=== PATIENT | female | born 1970 | race African-American/Black ===

== ENCOUNTER 2016-06-22 15:04 | Inpatient (IN) | payer OTHER ==
[2016-06-22 17:41] VITALS: BMI 24.7
--- NOTE | 2016-06-22 20:21 | HP ---
CIWA Score - CIWA Score Nausea/Vomitin Muscle Tremors: 4-Moderate,w/Arms Extend Anxiety: 3 Agitation: 3 Paroxysmal Sweats: 2 Orientation: 0-Oriented Tacttile Disturbances: 0-None Auditory Disturbances: 0-None Visual Disturbances: 0-None Headache: 0-None Present CIWA-Ar Total Score: 14 Admission ROS S - HPI Chief Complaint: WITHDRAWAL SYMPTOMS Allergies/Adverse Reactions: Allergies Allergy/AdvReac Type Severity Reaction Status Date / Time No Known Allergies Allergy Verified 06/22/16 20:18 History of Present Illness: 46 Y.O. WOMAN WITH AN EXTENSIVE HISTORY OF ALCOHOL DEPENDENCE IS SEEKING DETOX. THE REPORTS SHE COMPLETED DETOX 11 YEARS PRIOR AND REPORTS A HISTORY OF 2 YEARS OF SOBRIETY. Exam Limitations: No Limitations - Ebola screening Have you traveled outside of the country in the last 21 days: No Have you had contact with anyone from an Ebola affected area: No Have you been sick,other than usual withdrawal symptoms: No - Review of Systems Constitutional: Chills, Loss of Appetite, Changes in sleep, Unintentional Wgt. Loss EENT: reports: Blurred Vision, Tearing, Difficulty Swallowing Respiratory: reports: No Symptoms reported Cardiac: reports: No Symptoms Reported GI: reports: No Symptoms Reported : reports: No Symptoms Reported Musculoskeletal: reports: Back Pain Integumentary: reports: No Symptoms Reported Neuro: reports: Tremors Hematology: reports: No Symptoms Reported Psychiatric: reports: Orientated x3 Other Systems: Reviewed and Negative Patient History - Patient Medical History Hx Anemia: No Hx Asthma: No Hx Chronic Obstructive Pulmonary Disease (COPD): No Hx Cancer: No Hx Cardiac Disorders: No Hx Congestive Heart Failure: No Hx Hypertension: No Hx Hypercholesterolemia: No Hx Pacemaker: No HX Cerebrovascular Accident: No Hx Seizures: No Hx Dementia: No Hx Diabetes: No Hx Gastrointestinal Disorders: No Hx Liver Disease: No Hx Genitourinary Disorders: No Hx Sexually Transmitted Disorders: No Hx Renal Disease (ESRD): No Hx Thyroid Disease: No Hx Human Immunodeficiency Virus (HIV): No Hx Hepatitis C: No Hx Depression: No Hx Suicide Attempt: No Hx Bipolar Disorder: No Hx Schizophrenia: No - Patient Surgical History Past Surgical History: Yes Hx Neurologic Surgery: No Hx Cataract Extraction: No Hx Cardiac Surgery: No Hx Lung Surgery: No Hx Breast Surgery: No Hx Breast Biopsy: No Hx Abdominal Surgery: No Hx Appendectomy: No Hx Cholecystectomy: No Hx Genitourinary Surgery: No Hx Section: No Hx Orthopedic Surgery: Yes (R ROTATOR CUFF REPAIR ) Hx Hysterectomy: No Anesthesia Reaction: No - PPD History Previous Implant?: Yes Documented Results: Negative w/o proof Implanted On Prior [facility] Admission?: No PPD to be Administered?: Yes - Reproductive History Patient is a Female of Child Bearing Age (11 -55 yrs old): Yes Last Menstrual Period: 05/21/16 Patient : No - Smoking Cessation Smoking history: Current every day smoker Have you smoked in the past 12 months: Yes Aproximately how many cigarettes per day: 10 Hx Chewing Tobacco Use: No Initiated information on smoking cessation: Yes 'Breaking Loose' booklet given: 06/22/16 - Substance & Tx. History Hx Alcohol Use: Yes Hx Substance Use: No Substance Use Type: Alcohol Hx Substance Use Treatment: Yes (DETOX ) - Substances Abused Alcohol Route: Oral Frequency: Daily Amount used: 3-4 16OZ OF BEER Age of first use: 22 Date of Last Use: 06/22/16 Family Disease History - Family Disease History Family Disease History: Diabetes: Grandparent, Heart Disease: Father ( ) Admission Physical Exam S - Vital Signs Vital Signs: Vital Signs - 24 hr 06/22/16 17:39 Temperature 96.8 F L Pulse Rate 93 H Respiratory 20 Rate Blood Pressure 134/87 - Physical General Appearance: Yes: Intoxicated, Tremorous, Sweating, Anxious HEENTM: Yes: EOMI, Hearing grossly Normal, Normal ENT Inspection, Normocephalic Respiratory: Yes: Chest Non-Tender, Lungs Clear, Normal Breath Sounds, No Respiratory Distress, No Accessory Muscle Use Neck: Yes: No masses,lesions,Nodules, Trachea in good position Breast: Yes: Breast Exam Deferred Cardiology: Yes: Regular Rhythm, Regular Rate, S1, S2 Abdominal: Yes: Normal Bowel Sounds, Non Tender, Flat, Soft Genitourinary: Yes: Within Normal Limits Back: Yes: Normal Inspection Musculoskeletal: Yes: Gait Steady, Pelvis Stable, Back pain Extremities: Yes: Normal Capillary Refill, Normal Inspection, Normal Range of Motion 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 NML intact, Fully Oriented, Alert, Motor Strength 5/5, Normal Mood/Affect, Normal Response Integumentary: Yes: Normal Color, Dry, Warm Lymphatic: Yes: Within Normal Limits - Diagnostic (1) Alcohol dependence with uncomplicated withdrawal Current Visit: Yes Status: Chronic Cleared for Admission [facility] - Detox or Rehab [facility] Level of Care: Medically Managed Detox Regimen/Protocol: Librium [facility] Breath Alcohol Content Breath Alcohol Content: 0.193 Urine Pregancy Test - Result Urine Test Results: Negative- NO Line Present Urine Drug Screen - Results Drug Screen Negative: Yes
[2016-06-22] MEDS ORDERED: guaiFENesin/D-METHORPHAN HB 10 ML UNIT-DOSE CUPS PO PRN (20:33)
[2016-06-22] MEDS ORDERED: MAGNESIUM HYDROX 2400MG/30ML ORAL SUSPENSION 30 ML CUP PO PRN (20:33)
[2016-06-22] MEDS ORDERED: MAG HYDROX/AL HYDROX/SIMETH 30 ML UNIT-DOSE CUP PO PRN (20:33)
[2016-06-22] MEDS ORDERED: chlordiazePOXIDE HCL 25 MG CAPSULE PO PRN (20:33)
[2016-06-22] MEDS ORDERED: chlordiazePOXIDE HCL 25 MG CAPSULE PO ONE (20:33)
[2016-06-22] MEDS ORDERED: MENTHOL/PHENOL 1 EACH UD MM PRN (20:33)
[2016-06-22] MEDS ORDERED: ACETAMINOPHEN 325 MG TABLET (FP) PO PRN (20:33)
[2016-06-22] MEDS ORDERED: LOPERAMIDE HCL 2 MG CAPSULE PO PRN (20:33)
[2016-06-22] MEDS ORDERED: NICOTINE POLACRILEX 2 MG GUM BC PRN (20:33)
[2016-06-22] MEDS ORDERED: MAGNESIUM CITRATE 300 ML BOTTLE PO PRN (20:33)
[2016-06-22] MEDS ORDERED: P-EPHED 60MG/TRIPROLIDI 2.5MG TABLET PO PRN (20:33)
[2016-06-22] MEDS: diphenhydrAMINE HCL 50 MG CAPSULE PO PRN (21:40)
[2016-06-22] MEDS: THIAMINE HCL 100 MG TABLET (FP) PO SCH (21:43)
[2016-06-22] MEDS: chlordiazePOXIDE HCL 25 MG CAPSULE PO SCH (22:45)
[2016-06-22 22:49] LABS: URINE APPEARANCE CLEAR; URINE BILIRUBIN NEGATIVE (NEGATIVE); URINE BLOOD NEGATIVE (NEGATIVE); URINE COLOR STRAW; URINE GLUCOSE (UA) NEGATIVE (NEGATIVE); URINE KETONE NEGATIVE (NEGATIVE); URINE LEUK ESTERASE NEGATIVE (NEGATIVE); URINE NITRITE NEGATIVE (NEGATIVE); URINE PROTEIN NEGATIVE (NEGATIVE); URINE UROBILINOGEN NEGATIVE E.U./dl (0.2-1.0)
[2016-06-23] MEDS: chlordiazePOXIDE HCL 25 MG CAPSULE PO SCH ×4 (05:27→22:07)
[2016-06-23] MEDS: NICOTINE 14 MG/24 HOURS TOPICAL PATCH TD SCH (10:14)
[2016-06-23] MEDS: PRENATAL VITAMINS W/ FOLIC ACID TABLET (FP) PO SCH (10:14)
[2016-06-23 10:51] LABS: MCH 29.3 pg (25.7-33.7); MCHC 32.7 g/dl (32.0-36.0); MEAN CELL VOLUME 89.5 fl (80-96); MEAN PLT VOLUME 8.1 fl (7.5-11.1); PLATELET COUNT 162 K/MM3 (134-434); RDW 13.6 % (11.6-15.6); WHITE BLOOD COUNT 4.4 K/mm3 (4.0-10.0)
[2016-06-23 10:52] LABS: ALBUMIN 3.4 g/dl (3.4-5.0); ANION GAP 10 (8-16); CALCIUM 9.5 mg/dL (8.5-10.1); CO2 26 mmol/L (21-32); CREATININE 0.7 mg/dL (0.55-1.02); GLUCOSE,RANDOM 77 mg/dL (74-106); SGOT/AST 94 U/L (15-37); SGPT/ALT 57 U/L (12-78)
[2016-06-23 10:54] LABS: ALK PHOS 89 U/L (45-117); BILIRUBIN,TOTAL 0.6 mg/dL (0.2-1.0); TOT PROT 7.2 g/dl (6.4-8.2)
--- NOTE | 2016-06-23 11:24 | PN ---
[facility] CIWA - CIWA Score Nausea/Vomitin Muscle Tremors: 3 Anxiety: 3 Agitation: 2 Paroxysmal Sweats: 1-Minimal Palms Moist Orientation: 0-Oriented Tacttile Disturbances: 1-Very Mild Itch/Numbness Auditory Disturbances: 1-Very Mild Visual Disturbances: 1-Very Mild Sensitivity Headache: 2-Mild CIWA-Ar Total Score: 17 BHS Progress Note (SOAP) Subjective: ALERT,IRRITABLE,ANXIOUS,INTERRUPTED SLEEP,TREMOR Objective: 06/23/16 11:21 Vital Signs Temperature 97.9 F 06/23/16 09:59 Pulse Rate 96 H 06/23/16 09:59 Respiratory Rate 16 06/23/16 09:59 Blood Pressure 119/85 06/23/16 09:59 O2 Sat by Pulse Oximetry (%) EKG NSR 78/MIN NO CHEST PAIN,NO SOB,NO DIZZINESS Laboratory Last Values WBC 4.4 K/mm3 (4.0-10.0) 06/23/16 08:00 RBC 4.56 M/mm3 (3.60-5.2) 06/23/16 08:00 Hgb 13.3 GM/dL (10.7-15.3) 06/23/16 08:00 Hct 40.8 % (32.4-45.2) 06/23/16 08:00 MCV 89.5 fl (80-96) 06/23/16 08:00 MCHC 32.7 g/dl (32.0-36.0) 06/23/16 08:00 RDW 13.6 % (11.6-15.6) 06/23/16 08:00 Plt Count 162 K/MM3 (134-434) 06/23/16 08:00 MPV 8.1 fl (7.5-11.1) 06/23/16 08:00 Sodium 142 mmol/L (136-145) 06/23/16 08:00 Potassium 4.3 mmol/L (3.5-5.1) 06/23/16 08:00 Chloride 106 mmol/L (98-107) 06/23/16 08:00 Carbon Dioxide 26 mmol/L (21-32) 06/23/16 08:00 Anion Gap 10 (8-16) 06/23/16 08:00 BUN 7 mg/dL (7-18) 06/23/16 08:00 Creatinine 0.7 mg/dL (0.55-1.02) 06/23/16 08:00 Creat Clearance w eGFR > 60 (>60) 06/23/16 08:00 Random Glucose 77 mg/dL (74-106) 06/23/16 08:00 Calcium 9.5 mg/dL (8.5-10.1) 06/23/16 08:00 Total Bilirubin 0.6 mg/dL (0.2-1.0) 06/23/16 08:00 AST 94 U/L (15-37) H 06/23/16 08:00 ALT 57 U/L (12-78) 06/23/16 08:00 Alkaline Phosphatase 89 U/L (45-117) 06/23/16 08:00 Total Protein 7.2 g/dl (6.4-8.2) 06/23/16 08:00 Albumin 3.4 g/dl (3.4-5.0) 06/23/16 08:00 Urine Color Straw 06/22/16 21:56 Urine Appearance Clear 06/22/16 21:56 Urine pH 5.0 (5.0-8.0) 06/22/16 21:56 Ur Specific [place] 1.002 (1.001-1.035) 06/22/16 21:56 Urine Protein Negative (NEGATIVE) 06/22/16 21:56 Urine Glucose (UA) Negative (NEGATIVE) 06/22/16 21:56 Urine Ketones Negative (NEGATIVE) 06/22/16 21:56 Urine Blood Negative (NEGATIVE) 06/22/16 21:56 Urine Nitrite Negative (NEGATIVE) 06/22/16 21:56 Urine Bilirubin Negative (NEGATIVE) 06/22/16 21:56 Urine Urobilinogen Negative E.U./dl (0.2-1.0) 06/22/16 21:56 Ur Leukocyte Esterase Negative (NEGATIVE) 06/22/16 21:56 LABS PENDING Assessment: 06/23/16 11:23 WITHDRAWAL SYMPTOM Plan: CONTINUE DETOX
[2016-06-23] MEDS: hydrOXYzine PAMOATE 50 MG CAPSULE (FP) PO PRN (12:51)
--- NOTE | 2016-06-23 18:35 | EKG ---
Test Reason : Blood Pressure : / mmHG Vent. Rate : 078 BPM Atrial Rate : 078 BPM P-R Int : 172 ms QRS Dur : 068 ms QT Int : 358 ms P-R-T Axes : 079 052 015 degrees QTc Int : 408 ms POOR DATA QUALITY, INTERPRETATION MAY BE ADVERSELY AFFECTED NORMAL SINUS RHYTHM SEPTAL INFARCT , AGE UNDETERMINED NONSPECIFIC T WAVE ABNORMALITY ABNORMAL ECG NO PREVIOUS ECGS AVAILABLE Confirmed by CHRIS FERRERA, JOSE M ([id number]) on 06/23/2016 6:34:55 PM Referred By: Rj Berkowitz Confirmed By:JOSE M PEREZ MD
[2016-06-23] MEDS: THIAMINE HCL 100 MG TABLET (FP) PO SCH (22:07)
[2016-06-23] MEDS: diphenhydrAMINE HCL 50 MG CAPSULE PO PRN (22:08)
[2016-06-24] MEDS: chlordiazePOXIDE HCL 25 MG CAPSULE PO SCH ×3 (05:33→17:37)
[2016-06-24] MEDS: IBUPROFEN 400 MG TABLET (FP) PO PRN ×2 (05:34→22:30)
[2016-06-24] MEDS: PRENATAL VITAMINS W/ FOLIC ACID TABLET (FP) PO SCH (10:07)
[2016-06-24] MEDS: NICOTINE 14 MG/24 HOURS TOPICAL PATCH TD SCH (10:07)
[2016-06-24] MEDS: hydrOXYzine PAMOATE 50 MG CAPSULE (FP) PO PRN (10:07)
--- NOTE | 2016-06-24 10:56 | PN ---
[facility] CIWA - CIWA Score Nausea/Vomitin Muscle Tremors: 3 Anxiety: 3 Agitation: 2 Paroxysmal Sweats: 1-Minimal Palms Moist Orientation: 0-Oriented Tacttile Disturbances: 1-Very Mild Itch/Numbness Auditory Disturbances: 1-Very Mild Visual Disturbances: 1-Very Mild Sensitivity Headache: 2-Mild CIWA-Ar Total Score: 17 BHS Progress Note (SOAP) Subjective: ALERT,IRRITABLE,ANXIOUS,INTERRUPTED SLEEP,PAIN IN THE BODY Objective: 06/24/16 10:55 Vital Signs Temperature 97.3 F L 06/24/16 10:37 Pulse Rate 96 H 06/24/16 10:37 Respiratory Rate 18 06/24/16 10:37 Blood Pressure 127/88 06/24/16 10:37 O2 Sat by Pulse Oximetry (%) Laboratory Last Values WBC 4.4 K/mm3 (4.0-10.0) 06/23/16 08:00 RBC 4.56 M/mm3 (3.60-5.2) 06/23/16 08:00 Hgb 13.3 GM/dL (10.7-15.3) 06/23/16 08:00 Hct 40.8 % (32.4-45.2) 06/23/16 08:00 MCV 89.5 fl (80-96) 06/23/16 08:00 MCHC 32.7 g/dl (32.0-36.0) 06/23/16 08:00 RDW 13.6 % (11.6-15.6) 06/23/16 08:00 Plt Count 162 K/MM3 (134-434) 06/23/16 08:00 MPV 8.1 fl (7.5-11.1) 06/23/16 08:00 Sodium 142 mmol/L (136-145) 06/23/16 08:00 Potassium 4.3 mmol/L (3.5-5.1) 06/23/16 08:00 Chloride 106 mmol/L (98-107) 06/23/16 08:00 Carbon Dioxide 26 mmol/L (21-32) 06/23/16 08:00 Anion Gap 10 (8-16) 06/23/16 08:00 BUN 7 mg/dL (7-18) 06/23/16 08:00 Creatinine 0.7 mg/dL (0.55-1.02) 06/23/16 08:00 Creat Clearance w eGFR > 60 (>60) 06/23/16 08:00 Random Glucose 77 mg/dL (74-106) 06/23/16 08:00 Calcium 9.5 mg/dL (8.5-10.1) 06/23/16 08:00 Total Bilirubin 0.6 mg/dL (0.2-1.0) 06/23/16 08:00 AST 94 U/L (15-37) H 06/23/16 08:00 ALT 57 U/L (12-78) 06/23/16 08:00 Alkaline Phosphatase 89 U/L (45-117) 06/23/16 08:00 Total Protein 7.2 g/dl (6.4-8.2) 06/23/16 08:00 Albumin 3.4 g/dl (3.4-5.0) 06/23/16 08:00 Urine Color Straw 06/22/16 21:56 Urine Appearance Clear 06/22/16 21:56 Urine pH 5.0 (5.0-8.0) 06/22/16 21:56 Ur Specific [place] 1.002 (1.001-1.035) 06/22/16 21:56 Urine Protein Negative (NEGATIVE) 06/22/16 21:56 Urine Glucose (UA) Negative (NEGATIVE) 06/22/16 21:56 Urine Ketones Negative (NEGATIVE) 06/22/16 21:56 Urine Blood Negative (NEGATIVE) 06/22/16 21:56 Urine Nitrite Negative (NEGATIVE) 06/22/16 21:56 Urine Bilirubin Negative (NEGATIVE) 06/22/16 21:56 Urine Urobilinogen Negative E.U./dl (0.2-1.0) 06/22/16 21:56 Ur Leukocyte Esterase Negative (NEGATIVE) 06/22/16 21:56 RPR Titer Nonreactive (NONREACTIVE) 06/23/16 08:00 Assessment: 06/24/16 10:56 WITHDRAWAL SYMPTOM Plan: CONTINUE DETOX
[2016-06-24] MEDS: THIAMINE HCL 100 MG TABLET (FP) PO SCH (22:29)
[2016-06-24] MEDS: chlordiazePOXIDE 5 MG CAPSULE PO SCH (22:31)
[2016-06-24] MEDS: diphenhydrAMINE HCL 50 MG CAPSULE PO PRN (22:31)
[2016-06-25] MEDS: IBUPROFEN 400 MG TABLET (FP) PO PRN ×2 (04:10→10:10)
[2016-06-25] MEDS: chlordiazePOXIDE 5 MG CAPSULE PO SCH ×3 (05:23→17:30)
[2016-06-25] MEDS ORDERED: LIDOCAINE 5% TOPICAL PATCH TP ONE (09:10)
--- NOTE | 2016-06-25 09:41 | PN ---
BHS Progress Note (SOAP) Subjective: ALERT,IRRITABLE,ANXIOUS,INTERRUPTED SLEEP,CHRONIC LOW BACK PAIN Objective: 06/25/16 09:34 Vital Signs Temperature 97.9 F 06/25/16 06:00 Pulse Rate 78 06/25/16 06:00 Respiratory Rate 18 06/25/16 06:00 Blood Pressure 148/99 06/25/16 06:00 O2 Sat by Pulse Oximetry (%) 06/25/16 09:41 Assessment: 06/25/16 09:41 WITHDRAWAL SYMPTOM Plan: CONTINUE DETOX,DISCHARGE IN AM,LIDODERM PATCH
[2016-06-25] MEDS: PRENATAL VITAMINS W/ FOLIC ACID TABLET (FP) PO SCH (10:07)
[2016-06-25] MEDS: NICOTINE 14 MG/24 HOURS TOPICAL PATCH TD SCH (10:07)
[2016-06-25] MEDS: diphenhydrAMINE HCL 50 MG CAPSULE PO PRN (22:24)
[2016-06-25] MEDS: chlordiazePOXIDE HCL 10 MG CAPSULE PO SCH (22:24)
[2016-06-25] MEDS: THIAMINE HCL 100 MG TABLET (FP) PO SCH (22:24)
[2016-06-26] MEDS: chlordiazePOXIDE HCL 10 MG CAPSULE PO SCH (05:55)
[2016-06-26] MEDS: IBUPROFEN 400 MG TABLET (FP) PO PRN (05:57)
[2016-06-26] MEDS: PRENATAL VITAMINS W/ FOLIC ACID TABLET (FP) PO SCH (09:15)
[2016-06-26] MEDS: NICOTINE 14 MG/24 HOURS TOPICAL PATCH TD SCH (09:16)
--- NOTE | 2016-06-26 09:19 | PN ---
BHS Progress Note (SOAP) Subjective: alert,no complaint Objective: 06/26/16 09:18 Vital Signs Temperature 97.1 F L 06/26/16 06:40 Pulse Rate 90 06/26/16 06:40 Respiratory Rate 20 06/26/16 06:40 Blood Pressure 109/78 06/26/16 06:40 O2 Sat by Pulse Oximetry (%) Assessment: 06/26/16 09:18 detox completed,no withdrawal symptom Plan: dsicaharge today,follow up with after care program as arrangement
--- NOTE | 2016-06-26 09:21 | DS ---
[facility] Detox Discharge Summary Admission Date: 06/22/16 Discharge Date: 06/26/16 - History Present History: Alcohol Dependence Additional Comments: follow up with after [facility] program as arrangement and pmd for medical problem Pertinent Past History: chronic low back pain - Physical Exam Results Vital Signs: Vital Signs Temperature 97.1 F L 06/26/16 06:40 Pulse Rate 90 06/26/16 06:40 Respiratory Rate 20 06/26/16 06:40 Blood Pressure 109/78 06/26/16 06:40 O2 Sat by Pulse Oximetry (%) Pertinent Admission Physical Exam Findings: withdrawal symptom - Treatment Hospital Course: Detox Protocol Followed, Detoxed Safely, Responded well, Discharged Condition Good Patient has Accepted a Rehab Referral to: declined - Medication Discharge Medications: Ambulatory Orders NK [No Known Home Medication] 06/23/16 - AMA Did Patient Leave Against Medical Advice: No
[2016-06-26] MEDS: hydrOXYzine PAMOATE 50 MG CAPSULE (FP) PO PRN (09:28)
[2016-06-26 10:17] VITALS: BP 120/81; PULSE 85; TEMP 98.8
== END 2016-06-26 09:50 | disposition home or self-care (01) | DRG 775 ==
LOC: YASAS 15:04 → Y6N 20:35
PROVIDERS: ADMIT Internal Medicine; ATTEND Internal Medicine
PROC: HZ2ZZZZ Detoxification Services for Substance Abuse Treatment (ICD-10-PCS; principal; 2016-06-26)
DX: F10.230 Alcohol dependence with withdrawal, uncomplicated (principal)
CPT/HCPCS: 36415; 80053; 81003; 85027; 86593; 93005; 93010